=== PATIENT | female | born 1975 | race African-American/Black ===

== ENCOUNTER → 2016-08-31 | Outpatient (CLI) | payer BC | LOC: WI 13:38 | PROVIDERS: ATTEND Physician Assistant | DX: E01.0 Iodine-deficiency related diffuse (endemic) goiter (principal) | CPT/HCPCS: 76536 ==

== ENCOUNTER 2018-04-18 13:12 | Emergency (ER) | payer SELFPAY ==
--- NOTE | 2018-04-18 13:46 | ER Document Report ---
HPI - HPI Patient complains to provider of: Left foot injury Onset: This morning Onset/Duration: Sudden Quality of pain: Achy Pain Level: 3 Context: Patient states that she was walking down her steps and missed the last step twisting her foot. Patient complains of left foot pain since then and pain with weightbearing. Associated Symptoms: Other - Left foot injury Exacerbated by: Standing, Movement, Walking Relieved by: Denies Similar symptoms previously: No Recently seen / treated by doctor: No - ROS ROS below otherwise negative: Yes Systems Reviewed and Negative: Yes All other systems reviewed and negative - GASTROINTESTINAL Gastrointestinal: DENIES: Nausea - MUSCULOSKELETAL Musculoskeletal: REPORTS: Extremity pain - DERM Skin Color: Normal Skin Problems: None Past Medical History - General Information source: POA - Power of Employment And Claims Aide - Social History Smoking Status: Never Smoker Frequency of alcohol use: None Drug Abuse: None Occupation: [employer] Family History: Reviewed & Not Pertinent - Medical History Medical History: Negative Past Surgical History: Reports: Hx Orthopedic Surgery - Left fifth toe amputation Vertical Provider Document - CONSTITUTIONAL Agree With Documented VS: Yes Exam Limitations: No Limitations General Appearance: WD/WN, No Apparent Distress - INFECTION CONTROL TRAVEL OUTSIDE OF THE [place] IN LAST 30 DAYS: No - HEENT HEENT: Atraumatic, Normocephalic - NECK Neck: Normal Inspection - RESPIRATORY Respiratory: No Respiratory Distress - CARDIOVASCULAR Pulses: Normal: Dorsalis pedis - MUSCULOSKELETAL/EXTREMETIES Musculoskeletal/Extremeties: MAEW, Tender - Left foot tenderness over distal third and fourth metatarsals, scar from left fifth toe amputation, No Edema. negative: Eccymosis - NEURO Level of Consciousness: Awake, Alert, Appropriate Motor/Sensory: No Motor Deficit - DERM Integumentary: Warm, Dry, No Rash Course - Re-evaluation Re-evalutation: 04/18/18 13:46 Offered patient pain medication, patient declines - Vital Signs Vital signs: Temp Pulse Resp BP Pulse Ox 98.4 F 93 16 145/92 H 96 04/18/18 13:18 04/18/18 13:18 04/18/18 13:18 04/18/18 13:18 04/18/18 13:18 - Diagnostic Test Radiology reviewed: Image reviewed, Reports reviewed Procedures - Immobilization Left Foot Pre-Proc Neuro Vasc Exam: Normal Immobilizer type: Jeremy wrap, Post-op shoe Performed by: PCT Post-Proc Neuro Vasc Exam: Normal Alignment checked and good: Yes Discharge - Discharge Clinical Impression: Sprain of left foot Qualifiers: Encounter type: initial encounter Qualified Code(s): S93.602A - Unspecified sprain of left foot, initial encounter Disposition: HOME, SELF-CARE Instructions: Jeremy Wrap ([facility]), Use of Crutches ([facility]), Use of Xhrl-Ijx-Pxcwyvz Ibuprofen ([facility]), Ice Packs ([facility]), Post-Op Shoe ([facility]), Sprain ([facility]) Additional Instructions: Return immediately for any new or worsening symptoms Followup with your primary care provider, call tomorrow to make a followup appointment Weightbearing as tolerated Follow-up with orthopedics for any persistent pain or problems Forms: Return to Work Referrals: ERA RM PA-C [Primary Care Provider] - Follow up as needed [facility] [Provider Group] - Follow up as needed
--- NOTE | 2018-04-18 14:32 | RADIOLOGY REPORT (SQ) ---
EXAM DESCRIPTION: FOOT LEFT COMPLETE COMPLETED DATE/TIME: 04/18/2018 2:21 pm REASON FOR STUDY: missed step, left foot pain COMPARISON: None. NUMBER OF VIEWS: Three views. TECHNIQUE: AP, lateral and oblique radiographic images acquired of the left foot. LIMITATIONS: None. FINDINGS: MINERALIZATION: Normal. BONES: Prior amputation 5th digit. No osseous abnormality otherwise. JOINTS: No effusions. SOFT TISSUES: No soft tissue swelling. No foreign body. OTHER: No other significant finding. IMPRESSION: NEGATIVE STUDY OF THE LEFT FOOT. NO RADIOGRAPHIC EVIDENCE OF ACUTE INJURY. TECHNICAL DOCUMENTATION: JOB ID: [id number] [employer]- All Rights Reserved Reading location - IP/workstation name: [email or web address]
[2018-04-18 14:49] VITALS: BP 136/88
== END 2018-04-18 14:53 | disposition home or self-care (01) ==
LOC: ER 13:12
DX: S93.602A Unspecified sprain of left foot, initial encounter (principal); M79.672 Pain in left foot; X50.1XXA Overexertion from prolonged static or awkward postures, initial encounter
CPT/HCPCS: 99283

== ENCOUNTER 2020-03-18 07:32 | Emergency (ER) | payer SELFPAY ==
[2020-03-18 09:08] LABS: ABSOLUTE BASOPHILS # (AUTO) 0.1 10^3/uL (0.0-0.2); ABSOLUTE EOSINOPHILS # (AUTO) 0.1 10^3/uL (0.0-0.6); ABSOLUTE LYMPHOCYTES (AUTO) 2.1 10^3/uL (0.5-4.7); ABSOLUTE MONOCYTES (AUTO) 0.4 10^3/uL (0.1-1.4); ABSOLUTE NEUT (AUTO) 2.7 10^3/uL (1.7-8.2); EOSINOPHILS % (AUTO) 1.9 % (0-6); HEMATOCRIT 39.8 % (36.0-47.0); HEMOGLOBIN 13.4 g/dL (12.0-15.5); LYMPHOCYTES % (AUTO) 38.9 % (13-45); MEAN CORPUSCULAR HEMOGLOBIN 30.9 pg (27.0-33.4); MEAN CORPUSCULAR HGB CONC 33.8 g/dL (32.0-36.0); MEAN CORPUSCULAR VOLUME 91 fl (80-97); MONOCYTES % (AUTO) 8.1 % (3-13); PLATELET COUNT 322 10^3/uL (150-450); RED BLOOD COUNT 4.35 10^6/uL (3.72-5.28); RED CELL DISTRIBUTION WIDTH 14.6 % (11.5-14.0); SEGMENTED NEUTROPHILS % (AUTO) 50.1 % (42-78); TOTAL CELLS COUNTED % (AUTO) 100 %; WHITE BLOOD COUNT 5.3 10^3/uL (4.0-10.5)
[2020-03-18] MEDS ORDERED: BUTALB/ACETAMINOPHEN/CAFFEINE 1 TAB EACH PO ONE (09:34)
[2020-03-18 10:37] LABS: ALBUMIN 4.3 g/dL (3.5-5.0); ALKALINE PHOSPHATASE 78 U/L (38-126); ANION GAP 7 (5-19); ASPARTATE AMINO TRANSFERASE 32 U/L (14-36); BILIRUBIN,DIRECT 0.2 mg/dL (0.0-0.4); BILIRUBIN,TOTAL 0.5 mg/dL (0.2-1.3); BLOOD UREA NITROGEN 11 mg/dL (7-20); CARBON DIOXIDE 30 mmol/L (22-30); CHLORIDE 100 mmol/L (98-107); GLUCOSE 94 mg/dL (75-110); POTASSIUM 4.2 mmol/L (3.6-5.0); TOTAL PROTEIN 7.2 g/dL (6.3-8.2)
--- NOTE | 2020-03-18 10:45 | ER Document Report ---
ED Cardiac - General Chief Complaint: Chest Pain Stated Complaint: CHEST PAIN,ELEVATED BLOOD PRESSURE Time Seen by Provider: 03/18/20 09:05 Mode of Arrival: Ambulatory Information source: Patient TRAVEL OUTSIDE OF THE [place] IN LAST 30 DAYS: No - HPI Notes: Patient presents complaining of headache and chest pain. She states she has had both of these pains for "several months". They have been intermittent. Nothing makes them better or worse. There is no significant radiation of your pain. The chest pain has been a pressure sensation that is in the center of her chest. She occasionally has some shortness of breath when she climbs stairs but it is not related to this chest pain. The headache is been a throbbing sensation. She denies any changes of vision. She states that she was prompted to come to the hospital because she had a friend check her blood pressure and it was high. She states she does not currently have a primary doctor and has never been diagnosed with high blood pressure. - Related Data Allergies/Adverse Reactions: No Known Allergies Allergy (Verified 04/18/18 13:55) Past Medical History - General Information source: Patient - Social History Smoking Status: Never Smoker Frequency of alcohol use: None Drug Abuse: None Family History: Reviewed & Not Pertinent Renal/ Medical History: Denies: Hx Peritoneal Dialysis Past Surgical History: Reports: Hx Orthopedic Surgery - Left fifth toe amputation Review of Systems - Review of Systems Constitutional: denies: Chills, Fever Cardiovascular: Chest pain - Pressure. denies: Palpitations Respiratory: Short of breath - Intermittent with exertion. denies: Cough -: Yes All other systems reviewed and negative Physical Exam - Vital signs Vitals: Temp Pulse Resp BP Pulse Ox 98.1 F 63 18 149/94 H 96 03/18/20 07:45 03/18/20 07:45 03/18/20 07:45 03/18/20 07:45 03/18/20 07:45 Interpretation: Normal - General General appearance: Appears well, Alert - HEENT Head: Normocephalic, Atraumatic Eyes: Normal Pupils: PERRL - Respiratory Respiratory status: No respiratory distress Chest status: Nontender Breath sounds: Normal Chest palpation: Normal - Cardiovascular Rhythm: Regular Heart sounds: Normal auscultation Murmur: No - Abdominal Inspection: Normal Distension: No distension Bowel sounds: Normal Tenderness: Nontender Organomegaly: No organomegaly - Back Back: Normal, Nontender - Extremities General upper extremity: Normal inspection, Nontender, Normal color, Normal ROM, Normal temperature General lower extremity: Normal inspection, Nontender, Normal color, Normal ROM, Normal temperature, Normal weight bearing. No: Dwain's sign - Neurological Neuro grossly intact: Yes Cognition: Normal Orientation: AAOx4 Ty Coma Scale Eye Opening: Spontaneous Ty Coma Scale Verbal: Oriented Ty Coma Scale Motor: Obeys Commands Benoit Coma Scale Total: 15 Speech: Normal Motor strength normal: LUE, RUE, LLE, RLE Sensory: Normal - Psychological Associated symptoms: Normal affect, Normal mood - Skin Skin Temperature: Warm Skin Moisture: Dry Skin Color: Normal Course - Re-evaluation Re-evalutation: 03/18/20 11:06 Patient presented primarily because her blood pressure was high when she took it. She does state that she has had intermittent chest pain and headaches now for several months. I do not appreciate any acute condition. She has no acute ischemic changes on EKG and has normal laboratories. Blood pressure is elevated enough that I am going to start the patient on a low-dose blood pressure medication and refer her to a family physician. I will also discharge the patient home with some Fioricet for her headache. - Vital Signs Vital signs: Temp Pulse Resp BP Pulse Ox 98.1 F 63 13 145/91 H 99 03/18/20 07:45 03/18/20 07:45 03/18/20 10:31 03/18/20 10:31 03/18/20 10:31 - Laboratory Result Diagrams: 03/18/20 08:57 03/18/20 08:57 Laboratory results interpreted by me: 03/18/20 03/18/20 08:57 08:57 RDW 14.6 H Sodium 136.6 L - EKG Interpretation by Ia EKG shows normal: Sinus rhythm Rate: Normal - 63 Rhythm: NSR [place]/QRS: No: Right axis deviation, Left axis deviation Heart block present: 1st Degree Discharge - Discharge Clinical Impression: Uncontrolled hypertension Chest pain Qualifiers: Chest pain type: unspecified Qualified Code(s): R07.9 - Chest pain, unspecified Headache Qualifiers: Headache type: unspecified Headache chronicity pattern: acute headache Intractability: not intractable Qualified Code(s): R51 - Headache Condition: Stable Disposition: HOME, SELF-CARE Instructions: Chest Pain of Unclear Cause ([facility]) Prescriptions: Butalb/Acetaminophen/Caffeine [Fioricet (50-325-40 mg) Tablet] 1 tab PO Q4H #20 tab Amlodipine Besylate [Norvasc 2.5 mg Tablet] 2.5 mg PO DAILY #30 tablet Forms: Elevated Blood Pressure, Return to Work Referrals: SAMANTHA STOKES MD [ACTIVE STAFF] - Follow up in 3-5 days
[2020-03-18 10:48] LABS: NT PRO BNP 26 pg/mL (<125)
[2020-03-18 10:50] LABS: TROPONIN I < 0.012 ng/mL
[2020-03-18 11:37] VITALS: BP 134/80
--- NOTE | 2020-03-18 12:22 | EKG REPORT ---
SEVERITY:- ABNORMAL ECG - SINUS RHYTHM FIRST DEGREE AV BLOCK : Confirmed by: Pelon Urena MD 18-Mar-2020 12:21:44
== END 2020-03-18 11:37 | disposition home or self-care (01) ==
LOC: ER 07:32
DX: I10 Essential (primary) hypertension (principal); R07.89 Other chest pain; R51 Headache; R06.02 Shortness of breath; I44.0 Atrioventricular block, first degree
CPT/HCPCS: 93005; 99284; 36415; 85025; 80053; 84484; 83880; 93010; J3490